=== PATIENT | female | born 1950 | race Two or more races ===

== ENCOUNTER 2020-11-28 12:47 | Emergency (ER) | payer OTHER ==
[~2020-11-28] VITALS: Ht 162.6 cm; Wt 63.5 kg
[2020-11-28 14:29] LABS: Hematocrit 22.6 % (36.0-46.0); Mean Corpuscular Hemoglobin 37.8 pg (28.0-32.0); Mean Corpuscular Hgb Conc. 35.3 g/dL (32.0-36.0); Mean Corpuscular Volume 107.1 fL (80.0-100.0); Red Blood Cells 2.11 10^6/uL (4.0-5.20); Red Cell Distribution Width 18.1 % (11.8-14.3)
[2020-11-28 14:37] LABS: White Blood Cell 1.6 10^3/uL (4.4-10.8)
[2020-11-28 14:38] LABS: Band Neutrophils % (manual) 0; Basophils % (manual) 0 (0.0-2.0); Blast Cells 0; Eosinophils % (manual) 0 (0-7); Metamyelocytes % 0; Monocytes % (manual) 0 (0-12); Myelocytes % 0; Promyelocytes % 0; Reactive Lymphocytes 0
[2020-11-28 14:44] LABS: Albumin 3.8 g/dL (3.4-5.0); Anion Gap 5 (5-15); Blood Urea Nitrogen 21 mg/dL (7-18); Calcium 8.6 mg/dL (8.5-10.1); Carbon Dioxide 25 mmol/L (21-32); Chloride 111 mmol/L (98-107); Glucose 106 mg/dL (74-106); Potassium 4.2 mmol/L (3.5-5.1); Sodium 141 mmol/L (136-145)
[2020-11-28 14:47] LABS: Alanine Aminotransferase 41 U/L (13-56); Aspartate Aminotransferase 18 U/L (15-37); BUN/Creatinine Ratio 26.6; GFR African American 92 mL/min; GFR Non-African American 76 mL/min
[2020-11-28 14:51] LABS: Alkaline Phosphatase 93 U/L (45-117); Bilirubin, Total 0.6 mg/dL (0.2-1.0); Total Protein 6.8 g/dL (6.4-8.2)
[2020-11-28 15:06] LABS: Lymphocytes % (manual) 75 (10.0-50.0)
[2020-11-28 15:40] VITALS: BP 117/67
== END 2020-11-28 15:46 | disposition home or self-care (01) ==
LOC: ER 12:47
DX: D64.9 Anemia, unspecified (principal); D72.819 Decreased white blood cell count, unspecified; Z90.49 Acquired absence of other specified parts of digestive tract; Z90.710 Acquired absence of both cervix and uterus
CPT/HCPCS: 36415; 71046; 80053; 84484; 85007; 85027; 93005